=== PATIENT | male | born 1975 | race Caucasian/White ===

== ENCOUNTER 2016-05-30 22:22 | Emergency (ER) | payer MEDICARE ==
[~2016-05-30] VITALS: Ht 188 cm; Wt 111.1 kg
[2016-05-30 22:25] VITALS: BP 145/84
[2016-05-30] MEDS ORDERED: AZITHROMYCIN 500 MG TABLET ONE (22:59)
[2016-05-30] MEDS ORDERED: CEFTRIAXONE 250 MG ONE (22:59)
[2016-05-30] MEDS ORDERED: CEFTRIAXONE 250 MG IM ONE (23:00)
[2016-05-30] MEDS ORDERED: AZITHROMYCIN 500 MG TABLET PO ONE (23:00)
== END 2016-05-30 23:28 | disposition home or self-care (01) ==
LOC: ED 23:15
DX: Z20.2 Contact with and (suspected) exposure to infections with a predominantly sexual mode of transmission (principal)
CPT/HCPCS: 96372; 99283; J0696

== ENCOUNTER 2018-03-31 22:28 | Emergency (ER) | payer MEDICARE, MEDICAID ==
[~2018-03-31] VITALS: Ht 188 cm; Wt 112.7 kg
[2018-03-31 22:30] VITALS: BP 143/98
--- NOTE | 2018-03-31 23:17 | NUR ---
Patient/Caregiver given discharge instructions and they have confirmed that they understand the instructions. Patient ambulatory with steady gait.
== END 2018-03-31 23:18 | disposition home or self-care (01) ==
LOC: ED 22:45
DX: K02.9 Dental caries, unspecified (principal)
CPT/HCPCS: 99283

== ENCOUNTER 2019-12-02 02:15 | Emergency (ER) | payer SELFPAY ==
[~2019-12-02] VITALS: Ht 188 cm; Wt 109.8 kg
[2019-12-02 02:16] VITALS: BP 150/98
== END 2019-12-02 03:27 | disposition home or self-care (01) ==
LOC: ED 03:00
DX: K02.9 Dental caries, unspecified (principal); K08.89 Other specified disorders of teeth and supporting structures; R51.9 Headache, unspecified; R22.0 Localized swelling, mass and lump, head; Z72.9 Problem related to lifestyle, unspecified
CPT/HCPCS: 99283

== ENCOUNTER 2020-05-09 17:52 | Emergency (ER) | payer SELFPAY ==
[~2020-05-09] VITALS: Ht 188 cm; Wt 110.8 kg
[2020-05-09 17:56] VITALS: BP 148/82
--- NOTE | 2020-05-09 18:31 | NUR ---
Patient given discharge instructions and Rx, they have confirmed that they understand the instructions. Patient ambulatory with steady gait.
--- NOTE | 2020-05-09 18:58 | NUR ---
CARE FOR DC ONLY PROVIDED. NO IV TO DC, REVIEWED DC INSTRUCTIONS WITH PT, UNDERSTANDING VERBALIZED. PT PROVIDED WITH DENTAL RESOUCES. PT LEFT AMB. GAIT STEADY.
== END 2020-05-09 19:00 | disposition home or self-care (01) ==
LOC: ED 18:46
DX: K08.89 Other specified disorders of teeth and supporting structures (principal); M79.89 Other specified soft tissue disorders
CPT/HCPCS: 99283

== ENCOUNTER 2020-11-01 07:09 | Emergency (ER) | payer SELFPAY ==
[~2020-11-01] VITALS: Ht 188 cm; Wt 107.5 kg
[2020-11-01 07:10] VITALS: BP 125/81
--- NOTE | 2020-11-01 07:30 | NUR ---
First contact for d/c, pt verbalizes understanding of instruct and f/u. To return to ER if worse or concerns.
== END 2020-11-01 07:34 | disposition home or self-care (01) ==
LOC: ED 07:15
DX: K02.9 Dental caries, unspecified (principal)
CPT/HCPCS: 99283